=== PATIENT | female | born 1970 | race Caucasian/White ===

== ENCOUNTER 2016-11-14 22:57 | Emergency (ER) | payer OTHER, MEDICAID ==
[~2016-11-14] VITALS: Ht 172.7 cm; Wt 80.7 kg
[~2016-11-14 22:57] MED LIST: DILA100C PO; IBUP800T23 PO; IPRAAER IN; LIPI10TA PO; PHEN30TA32 PO; SUST600T4 PO; hiv med PO
[2016-11-14 23:06] VITALS: BP 119/90; PULSE 95; RESP 18; TEMP 97.6; O2SAT 95
[2016-11-15 00:10] VITALS: BP 119/90; PULSE 95; RESP 18; TEMP 97.6; O2SAT 97
[2016-11-15] MEDS ORDERED: oxyCODONE/ACETAMINOPHEN 5 MG/325 MG TAB PO ONE (00:15)
--- NOTE | 2016-11-15 00:19 | PD ---
HPI Chief Complaint: Fall Time Seen by Provider: 00:09 Travel History International Travel<30 days: No Contact w/Intl Traveler<30days: No History of Present Illness HPI Patient is a 46-year-old female who presents to emergency with complaints of right-sided knee pain. Patient reports that this afternoon, she was walking down some stairs at her home, reports that she fell down 2 stairs and landed on her right knee. Patient denies any trauma to the head or neck, reports no loss of consciousness. Patient reports that she noticed that she had an abrasion to her right knee and place antibiotic ointment and a Band-Aid over it. Reports that she was able to walk after her fall, reports that she has had increased pain over the past few hours to her right knee. Reports that she has has noticed increased bruising and swelling to her knee. Patient here for evaluation of possible fracture to her knee. Patient did take Motrin 4 hours ago and reports no relief of symptoms. PFSH Past Medical History Blood Disorders: Yes (HIV) Anxiety: Yes High Cholesterol: Yes Diminished Hearing: No Respiratory: Yes (Asthma) Immunizations Current: Yes Seizures: Yes Menopausal: No : 3 Past Surgical History Appendectomy: Yes Hysterectomy: Yes Oral Surgery: Yes Social History Alcohol Use: No Tobacco Use: Yes (1/2 PACK A DAY) Substance Use: No Allergies-Medications (Allergen,Severity, Reaction): Coded Allergies: No Known Allergies (Verified , 11/15/16) Reported Meds & Prescriptions Reported Meds & Active Scripts Active Reported Dilantin (Phenytoin Extended) 100 Mg Cap 200 Mg PO BID Phenobarbital 30 Mg Tab 30 Mg PO BID Review of Systems General / Constitutional: No: Fever Eyes: No: Visual changes HENT: No: Headaches Cardiovascular: No: Chest Pain or Discomfort Respiratory: No: Shortness of Breath Gastrointestinal: No: Abdominal Pain Genitourinary: No: Dysuria Musculoskeletal: Positive: Limited ROM (right knee), Pain (right knee pain) Skin: No Rash Neurologic: No: Weakness Psychiatric: No: Depression Endocrine: No: Polydipsia Hematologic/Lymphatic: No: Easy Bruising Physical Exam Narrative GENERAL: Well-nourished, well-developed patient. SKIN: Warm and dry. HEAD: Normocephalic. EYES: No scleral icterus. No injection or drainage. NECK: Supple, trachea midline. No JVD or lymphadenopathy. CARDIOVASCULAR: Regular rate and rhythm without murmurs, gallops, or rubs. RESPIRATORY: Breath sounds equal bilaterally. No accessory muscle use. GASTROINTESTINAL: Abdomen soft, non-tender, nondistended. MUSCULOSKELETAL: No cyanosis. Left lower extremity: Normal exam Right lower extremity: Patient with no pain with range of motion to right hip, patient with pain to passive and acitve range of motion to right knee, no pain with range of motion to right ankle. Patient does have bruising to her right knee as well as superficial abrasion. Patient with no obvious deformities, pulses intact, neurovascularly intact. BACK: Nontender without obvious deformity. No CVA tenderness. Data Data Last Documented VS Vital Signs Date Time Temp Pulse Resp B/P Pulse Ox O2 Delivery O2 Flow Rate FiO2 11/15/16 00:15 95 18 97 Room Air 11/15/16 00:10 97.6 119/90 Orders Knee, Complete (4vws) (11/15/16 ) Oxycodone-Acetamin 5-325 Mg (Percocet (11/15/16 00:15) MDM Medical Decision Making Medical Screen Exam Complete: Yes Emergency Medical Condition: Yes Interpretation(s) Vital Signs Date Time Temp Pulse Resp B/P Pulse Ox O2 Delivery O2 Flow Rate FiO2 11/14/16 23:06 97.6 95 18 119/90 95 Differential Diagnosis Knee sprain, knee fracture, patella fracture Narrative Course Patient is a 46-year-old female who presents to emergency room with complaints of knee pain. Patient reports that she fell down 2 stairs this afternoon, that she landed on her right knee. Patient with no trauma to the head or neck after fall. Patient is currently not on any anticoagulants. Patient reports that she noticed increased swelling and bruising to her right knee today, patient here for evaluation of possible fracture. X-ray of the knee ordered to evaluate for possible fracture X-ray of knee shows no signs of fracture, patient does have a joint effusion. This is reviewed with patient. Patient follow up with Ortho as outpatient and return to emergency room as needed. Encouraged rest, ice and elevation. Diagnosis Primary Impression: Knee sprain Qualified Code: S83.8X1A - Sprain of other ligament of right knee, initial encounter Additional Impression: Knee effusion, right Referrals: Rodger Marino MD Patient Instructions: General Instructions, Narcotic given in the ED Additional Instructions: Please provide patient with a copy of her x-ray discharge Please follow-up with orthopedic surgeon as needed Apply ice, rest and elevate her legs to help decrease swelling Do not drive or operate heavy machinery while taking pain medications. Med/Other Pt SpecificInfo: Prescription(s) given Scripts Hydrocodone-Acetaminophen (Lortab)5-325 Mg Tab1 Tab PO Q6H PRN (PAIN) #10 TAB Ref 0 Prov:Ana Cristina Field DO 11/15/16 Disposition: 01 DISCHARGE HOME Condition: Stable Ana Cristina Field DO Nov 15, 2016 00:19
[2016-11-15] MEDS ORDERED: DILA100C PO (00:59)
[2016-11-15] MEDS ORDERED: PHEN-523 PO (00:59)
--- NOTE | 2016-11-15 01:03 | RADHPO ---
EXAM DATE/TIME: 11/15/2016 00:23 [facility] COMPARISON: No previous studies available for comparison. INDICATIONS : Right knee pain after fall from standing height today MEDICAL HISTORY : None. SURGICAL HISTORY : None. ENCOUNTER: Initial ACUITY: 1 day PAIN SCORE: 8/10 LOCATION: Right anterior knee FINDINGS: 4 views of the right knee. Bone alignment within normal limits. No evidence of fracture. No evidence of joint narrowing. Moderate-sized joint effusion. Superior patellar enthesophyte noted. CONCLUSION: Moderate-sized joint effusion. No evidence of fracture. Juan Jose Canchola MD on November 15, 2016 at 1:00 Board Certified Radiologist. This report was verified electronically.
[2016-11-15] MEDS ORDERED: HYDR-3533 PO (01:07)
[2016-11-15 01:39] VITALS: RESP 18
[2016-11-15 01:50] VITALS: BP 105/71
== END 2016-11-15 01:52 | disposition home or self-care (01) ==
LOC: PHED 22:57
DX: S83.8X1A Sprain of other specified parts of right knee, initial encounter (principal); B20 Human immunodeficiency virus [HIV] disease; E78.00 Pure hypercholesterolemia, unspecified; F41.9 Anxiety disorder, unspecified; J45.909 Unspecified asthma, uncomplicated; F17.210 Nicotine dependence, cigarettes, uncomplicated; W10.8XXA Fall (on) (from) other stairs and steps, initial encounter; Y93.89 Activity, other specified; Y92.009 Unspecified place in unspecified non-institutional (private) residence as the place of occurrence of the external cause
CPT/HCPCS: 73564; 99283; E0113; L1830

== ENCOUNTER 2016-12-04 03:42 | Emergency (ER) | payer OTHER ==
[~2016-12-04] VITALS: Ht 170.2 cm; Wt 79.4 kg
[~2016-12-04 03:42] MED LIST changes: +HYDR-3533 PO; -IBUP800T23 PO; -IPRAAER IN; -LIPI10TA PO; +PHEN-523 PO; -PHEN30TA32 PO; -SUST600T4 PO; -hiv med PO
[2016-12-04 03:44] VITALS: BP 108/76; PULSE 82; RESP 18; TEMP 98; O2SAT 95
[2016-12-04 03:50] VITALS: BP 97/74; PULSE 80; RESP 16; TEMP 98.1; O2SAT 97
[2016-12-04] MEDS ORDERED: KETOROLAC TROMETHAMINE 30 MG/ML (IVP) VIAL IV PUSH ONE (04:30)
[2016-12-04] MEDS ORDERED: CYCLOBENZAPRINE HCL 10 MG TAB PO ONE (04:30)
[2016-12-04] MEDS ORDERED: SODIUM CHLOR 0.9% 1000 ML INJ 1,000 ML IV ONE (04:30)
[2016-12-04 05:21] LABS: BLOOD, URINE NEG (NEG); GLUCOSE,URINE NEG (NEG); KETONE, URINE TRACE mg/dL (NEG); NITRITE,URINE NEG (NEG); PH, URINE 5.5 (5.0-8.5)
[2016-12-04 05:21] LABS: AUTOMATED NEUTROPHIL # 5.7 TH/MM3 (1.8-7.7); BASOPHIL # 0.1 TH/MM3 (0-0.2); BASOPHIL % 0.8 % (0.0-2.0); EOSINOPHIL # 0.3 TH/MM3 (0-0.4); HEMATOCRIT 45.8 % (35.0-46.0); LYMPH % 31.2 % (9.0-44.0); LYMPHOCYTE # 3.1 TH/MM3 (1.0-4.8); MEAN CELL VOLUME 96.2 FL (80.0-100.0); MEAN CORPUSCULAR HEMOGLOBIN 31.5 PG (27.0-34.0); MEAN CORPUSCULAR HGB CONC 32.8 % (32.0-36.0); MONO % 6.1 % (0.0-8.0); NEUT % 58.9 % (16.0-70.0); PLATELET COUNT 287 TH/MM3 (150-450); RED BLOOD COUNT 4.77 MIL/MM3 (4.00-5.30); RED CELL DISTRIBUTION WIDTH 13.1 % (11.6-17.2); WHITE BLOOD COUNT 9.8 TH/MM3 (4.0-11.0)
[2016-12-04 05:47] LABS: HEMO FLAGS DIFF FINAL
[2016-12-04 05:48] LABS: CHLORIDE 109 MEQ/L (98-107); SODIUM (NA) 143 MEQ/L (136-145)
[2016-12-04 05:52] LABS: URINE COLOR YELLOW (YELLW/STRAW)
[2016-12-04 05:52] LABS: ANION GAP 9 MEQ/L (5-15); BICARBONATE 25.2 MEQ/L (21.0-32.0); BLOOD UREA NITROGEN 7 MG/DL (7-18)
[2016-12-04 05:53] LABS: MUCUS URINE MOD /lpf (OCC)
[2016-12-04 05:54] LABS: BACTERIA, URINE FEW /hpf
[2016-12-04 05:55] LABS: COMMENT (UR) CULT NOT INDICATED; CULTURE IF INDICATED CULT NOT INDICATED
[2016-12-04 05:55] LABS: ALT (GPT) 28 U/L (10-53); AST (GOT) 23 U/L (15-37); GLOMERULAR FILTRATION RATE 81 ML/MIN (>89)
--- NOTE | 2016-12-04 05:56 | PD ---
HPI Chief Complaint: Back/ Neck Pain or Injury Time Seen by Provider: 04:17 Travel History International Travel<30 days: No Contact w/Intl Traveler<30days: No History of Present Illness HPI Patient is a 46 year old female who comes in complaining of left lower back pain that started yesterday morning. She says the pain radiates down her left leg. She denies any numbness or tingling to her legs. She denies any incontinence, but says she has not been urinating much. She denies any fever or chills. She denies any injuries. She tried taking a Lortab without relief of her pain. PFSH Past Medical History Blood Disorders: Yes (HIV) Anxiety: Yes High Cholesterol: Yes Diminished Hearing: No Respiratory: Yes (COPD) Immunizations Current: Yes Seizures: Yes Tetanus Vaccination: Unknown Influenza Vaccination: No ?: Not Menopausal: No : 3 Past Surgical History Appendectomy: Yes Hysterectomy: Yes (1993) Oral Surgery: Yes Social History Alcohol Use: No Tobacco Use: Yes (1/2 PACK A DAY) Substance Use: No Allergies-Medications (Allergen,Severity, Reaction): Coded Allergies: No Known Allergies (Verified , 11/15/16) Reported Meds & Prescriptions Reported Meds & Active Scripts Active Flexeril (Cyclobenzaprine HCl) 10 Mg Tab 10 Mg PO TID Ibuprofen 600 Mg Tab 600 Mg PO Q6H PRN Lortab (Hydrocodone-Acetaminophen) 5-325 Mg Tab 1 Tab PO Q6H PRN Reported Dilantin (Phenytoin Extended) 100 Mg Cap 200 Mg PO BID Phenobarbital 30 Mg Tab 30 Mg PO BID Review of Systems Except as stated in HPI: all other systems reviewed are Neg General / Constitutional: No: Fever, Chills HENT: No: Headaches, Lightheadedness Cardiovascular: No: Chest Pain or Discomfort Respiratory: No: Shortness of Breath Gastrointestinal: No: Nausea, Vomiting Genitourinary: No: Dysuria, Flank Pain Musculoskeletal: Positive: Pain Skin: No Rash, No Change in Pigmentation Neurologic: No: Weakness, Sensory Disturbance Physical Exam Narrative GENERAL: Awake and alert, in no acute distress. SKIN: Focused skin assessment warm/dry. HEAD: Atraumatic. Normocephalic. EYES: Pupils equal and round. No scleral icterus. ENT: Mucous membranes pink and moist. NECK: Trachea midline. No JVD. CARDIOVASCULAR: Regular rate and rhythm. No murmur appreciated. RESPIRATORY: No accessory muscle use. Clear to auscultation. Breath sounds equal bilaterally. GASTROINTESTINAL: Abdomen soft, non-tender, nondistended. No CVA tenderness. MUSCULOSKELETAL: No obvious deformities. No clubbing. No cyanosis. No edema. Tender to left sacroiliac area. Pain with left straight leg raise. NEUROLOGICAL: Awake and alert. No obvious cranial nerve deficits. Motor grossly within normal limits. Normal speech. No saddle anesthesia. PSYCHIATRIC: Appropriate mood and affect; insight and judgment normal. Data Data Last Documented VS Vital Signs Date Time Temp Pulse Resp B/P Pulse Ox O2 Delivery O2 Flow Rate FiO2 12/04/16 03:50 98.1 80 16 97/74 97 Orders Complete Blood Count With Diff (12/04/16 04:27) Comprehensive Metabolic Panel (12/04/16 04:27) Urinalysis - C+S If Indicated (12/04/16 04:27) Spine, Lumbar Comp W/Obliq (12/04/16 ) Ketorolac Inj (Toradol Inj) (12/04/16 04:30) Cyclobenzaprine (Flexeril) (12/04/16 04:30) Sodium Chlor 0.9% 1000 Ml Inj (Ns 1000 M (12/04/16 04:30) Labs Laboratory Tests Test 12/04/16 12/04/16 04:40 04:45 Urine Color YELLOW Urine Turbidity SLIGHT Urine pH 5.5 Urine Specific [place] 1.019 Urine Protein NEG mg/dL Urine Glucose (UA) NEG mg/dL Urine Ketones TRACE mg/dL Urine Occult Blood NEG Urine Nitrite NEG Urine Bilirubin NEG Urine Leukocyte Esterase NEG Urine WBC 3-5 /hpf Urine Squamous Epithelial 6-8 /hpf Cells Urine Bacteria FEW /hpf Urine Mucus MOD /lpf Microscopic Urinalysis Comment CULT NOT INDICATED White Blood Count 9.8 TH/MM3 Red Blood Count 4.77 MIL/MM3 Hemoglobin 15.0 GM/DL Hematocrit 45.8 % Mean Corpuscular Volume 96.2 FL Mean Corpuscular Hemoglobin 31.5 PG Mean Corpuscular Hemoglobin 32.8 % Concent Red Cell Distribution Width 13.1 % Platelet Count 287 TH/MM3 Mean Platelet Volume 7.6 FL Neutrophils (%) (Auto) 58.9 % Lymphocytes (%) (Auto) 31.2 % Monocytes (%) (Auto) 6.1 % Eosinophils (%) (Auto) 3.0 % Basophils (%) (Auto) 0.8 % Neutrophils # (Auto) 5.7 TH/MM3 Lymphocytes # (Auto) 3.1 TH/MM3 Monocytes # (Auto) 0.6 TH/MM3 Eosinophils # (Auto) 0.3 TH/MM3 Basophils # (Auto) 0.1 TH/MM3 CBC Comment DIFF FINAL Differential Comment Sodium Level 143 MEQ/L Potassium Level 4.5 MEQ/L Chloride Level 109 MEQ/L Carbon Dioxide Level 25.2 MEQ/L Anion Gap 9 MEQ/L Blood Urea Nitrogen 7 MG/DL Creatinine 0.76 MG/DL Estimat Glomerular Filtration 81 ML/MIN Rate Random Glucose 91 MG/DL Calcium Level 8.4 MG/DL Total Bilirubin 0.2 MG/DL Aspartate Amino Transf 23 U/L (AST/SGOT) Alanine Aminotransferase 28 U/L (ALT/SGPT) Alkaline Phosphatase 136 U/L Total Protein 7.5 GM/DL Albumin 3.5 GM/DL [facility] Medical Decision Making Medical Screen Exam Complete: Yes Emergency Medical Condition: Yes Medical Record Reviewed: Yes Differential Diagnosis UTI versus muscle strain versus sciatica Narrative Course Patient is a 38-year-old female comes in complaining of left lower back pain. Exam shows tenderness to left sacroiliac area. IV established, labs sent. Patient given IV fluids, Toradol, Flexeril. Labs show no acute abnormalities. XR shows some osteopenia and mild scoliosis, no acute abnormalities. Patient reports feeling better after medications. Will be discharged with prescriptions for Ibuprofen and Flexeril. Advised to follow up with her doctor. Advised to return to the ED as needed for any worsening symptoms. Diagnosis Primary Impression: Low back pain Qualified Code: M54.42 - Acute left-sided low back pain with left-sided sciatica Patient Instructions: Acute Low Back Pain (ED), General Instructions Additional Instructions: Take Ibuprofen and Flexeril as needed for pain. Follow up with your doctor. Return to the ED as needed for any worsening symptoms. Scripts Cyclobenzaprine (Flexeril)10 Mg Tab10 Mg PO TID #15 TAB Ref 0 Prov:Breann Dc MD 12/04/16 Ibuprofen 600 Mg Akg707 Mg PO Q6H PRN (Pain/Inflammation) #20 TAB Ref 0 Prov:Breann Dc MD 12/04/16 Disposition: 01 DISCHARGE HOME Condition: Stable Breann Dc MD Dec 04, 2016 05:56
[2016-12-04 05:57] LABS: TOTAL BILIRUBIN ADULT 0.2 MG/DL (0.2-1.0)
[2016-12-04 05:58] LABS: ALKALINE PHOSPHATASE 136 U/L (45-117)
[2016-12-04 06:13] LABS: POTASSIUM 4.5 MEQ/L (3.5-5.1)
[2016-12-04] MEDS ORDERED: CYCL1TAB29 PO (06:18)
[2016-12-04] MEDS ORDERED: IBUP-232 PO (06:18)
--- NOTE | 2016-12-04 06:19 | RADHPO ---
EXAM DATE/TIME: 12/04/2016 04:50 [facility] COMPARISON: No previous studies available for comparison. INDICATIONS : Low back pain for several days. MEDICAL HISTORY : None. SURGICAL HISTORY : None. ENCOUNTER: Initial ACUITY: 2 days PAIN SCORE: 7/10 LOCATION: Bilateral Paraspinal FINDINGS: There are five non-rib bearing vertebral bodies. A very subtle scoliotic curvature. The disc spaces are maintained. The posterior elements are intact without evidence of spondylolysis. The pedicles a re intact. Bony mineralization is reduced. No fracture is identified. CONCLUSION: 1. No acute abnormality. 2. Osteopenia. 3. Mild scoliosis. Brian Massey Jr., MD on December 04, 2016 at 6:17 Board Certified Radiologist. This report was verified electronically.
[2016-12-04 07:16] VITALS: BP 129/81; TEMP 98.6
== END 2016-12-04 07:17 | disposition home or self-care (01) ==
LOC: PHED 03:42
DX: M54.42 Lumbago with sciatica, left side (principal); F41.9 Anxiety disorder, unspecified; E78.00 Pure hypercholesterolemia, unspecified; J44.9 Chronic obstructive pulmonary disease, unspecified; F17.200 Nicotine dependence, unspecified, uncomplicated; Z21 Asymptomatic human immunodeficiency virus [HIV] infection status
CPT/HCPCS: 72110; 80053; 81001; 85025; 96361; 96374; 99283; J1885; J7030

== ENCOUNTER 2017-11-10 17:48 | Emergency (ER) | payer OTHER ==
[~2017-11-10] VITALS: Ht 170.2 cm; Wt 80.0 kg
[~2017-11-10 17:48] MED LIST changes: +CYCL10TA PO; +IBUP-232 PO
[2017-11-10 18:04] VITALS: BP 118/67; PULSE 86; RESP 18; TEMP 98; O2SAT 97
[2017-11-10] MEDS ORDERED: DICL75TA PO (20:08)
[2017-11-10] MEDS ORDERED: HYDR-3516 PO (20:08)
== END 2017-11-10 18:56 | disposition left against medical advice (07) ==
LOC: NED 17:48
DX: M25.571 Pain in right ankle and joints of right foot (principal)
CPT/HCPCS: 99281

== ENCOUNTER 2017-11-10 19:17 | Emergency (ER) | payer OTHER ==
[2017-11-10 19:24] VITALS: BP 143/74; PULSE 86; RESP 20; TEMP 98; O2SAT 98
--- NOTE | 2017-11-10 20:01 | RADRPT ---
EXAM DATE/TIME: 11/10/2017 19:42 [facility] COMPARISON: No previous studies available for comparison. INDICATIONS : Right lateral ankle pain after twisting ankle today. MEDICAL HISTORY : None. SURGICAL HISTORY : None. ENCOUNTER: Initial ACUITY: 1 day PAIN SCORE: 6/10 LOCATION: Right ankle FINDINGS: There is moderate soft tissue swelling about the lateral aspect of the ankle. There is a horizontal nondisplaced fracture through the distal metaphysis of the fibula. The distal tibia is grossly intac t and the ankle mortise is symmetric. No radiopaque foreign bodies. CONCLUSION: Nondisplaced horizontal fracture of the distal metaphysis of the fibula with associated soft tissue s welling. Brian Reyes MD on November 10, 2017 at 19:58 Board Certified Radiologist. This report was verified electronically.
--- NOTE | 2017-11-10 20:04 | PD ---
HPI Chief Complaint: Fall Time Seen by Provider: 19:33 Travel History International Travel<30 days: No Contact w/Intl Traveler<30days: No Traveled to known affect area: No History of Present Illness HPI 47-year-old female that presents to the ED for evaluation of injury to her right ankle. Per patient she accidentally tripped and fell and injured her right ankle. Per patient is happened around 5:00 this afternoon. She's been having pain on the lateral aspect of the ankle. She has swelling in this area. Denies any prior injuries. No numbness, tingling, weakness. She has difficulty moving the foot but able to do it. She states that the pain currently is 7 out of 10. Gets worse with weightbearing. No allergies to medication. No other injuries reported. PFSH Past Medical History Blood Disorders: Yes (HIV) Anxiety: Yes High Cholesterol: Yes Diminished Hearing: No Respiratory: Yes (COPD) Immunizations Current: Yes Seizures: Yes ?: Not LMP: 1993 Menopausal: No : 3 Past Surgical History Appendectomy: Yes Hysterectomy: Yes Oral Surgery: Yes Social History Alcohol Use: No Tobacco Use: Yes (1/2 PACK A DAY) Substance Use: No Allergies-Medications (Allergen,Severity, Reaction): Coded Allergies: No Known Allergies (Verified Adverse Reaction, Unknown, 11/10/17) Reported Meds & Prescriptions Reported Meds & Active Scripts Active Hydrocodone-Acetaminophen 5-325 mg Tab 1 Tab PO Q6H PRN Diclofenac Sodium DR (Diclofenac Sodium) 75 Mg Tabdr 75 Mg PO BID PRN Reported Dilantin (Phenytoin Extended) 100 Mg Cap 200 Mg PO BID Phenobarbital 30 Mg Tab 30 Mg PO BID Review of Systems Except as stated in HPI: all other systems reviewed are Neg Physical Exam Narrative GENERAL: SKIN: Warm and dry. HEAD: Atraumatic. Normocephalic. EYES: Pupils equal and round. No scleral icterus. No injection or drainage. ENT: No nasal bleeding or discharge. Mucous membranes pink and moist. Tongue is midline. No uvula deviation. NECK: Trachea midline. No JVD. CARDIOVASCULAR: Regular rate and rhythm. RESPIRATORY: No accessory muscle use. Clear to auscultation. Breath sounds equal bilaterally. GASTROINTESTINAL: Abdomen soft, non-tender, nondistended. Hepatic and splenic margins not palpable. MUSCULOSKELETAL: Extremities without clubbing, cyanosis, or edema. No obvious deformities. Full range of motion of the upper and lower extremities bilaterally. Patient does have pain and swelling reproducible on the right lateral malleolus. Very tender to touch in this area. No obvious bony deformity or swelling noted on the foot itself. 2+ pulses bilaterally. Neurovascularly intact. No lumbar, thoracic, cervical spine tenderness to palpation. NEUROLOGICAL: Awake and alert. No obvious cranial nerve deficits. Motor grossly within normal limits. Five out of 5 muscle strength in the arms and legs. Normal speech. PSYCHIATRIC: Appropriate mood and affect; insight and judgment normal. Data Data Last Documented VS Vital Signs Date Time Temp Pulse Resp B/P (MAP) Pulse Ox O2 Delivery O2 Flow Rate FiO2 11/10/17 19:24 98.0 86 20 143/74 (97) 98 Orders Orders Ankle, Complete ([id number]) (11/10/17 ) Splint Or Brace Apply/Monitor (11/10/17 20:04) Acetamin-Hydrocod 325-5 Mg ([place] 5-325 (11/10/17 20:15) Ed Discharge Order (11/10/17 20:04) Mandatory Outpatient Referral (11/10/17 20:06) MDM Medical Decision Making Medical Screen Exam Complete: Yes Emergency Medical Condition: Yes Medical Record Reviewed: Yes Interpretation(s) X-ray of the right ankle show fracture of the distal fibula Differential Diagnosis Fracture versus sprain versus bruise Narrative Course 47 yo female here for injury to the right ankle. Patient was properly examined and was found to have signs and symptoms concerning for bony injuries. X-rays were done. X-rays were positive for fracture. Patient will be put in splint. Given crutches. Patient will be given a prescription for Lortab and diclofenac sodium. Told to follow up with orthopedic doctor. See ED worsening symptoms. Ice or warm compresses. Diagnosis Primary Impression: Ankle fracture, right Qualified Codes: S82.891A - Other fracture of right lower leg, initial encounter for closed fracture Referrals: Edmund Solis MD Patient Instructions: General Instructions, Narcotic given in the ED Additional Instructions: Take medications as prescribed. Follow-up with ortho. A mandatory referral ordered, but if you can also call your doctor to refer you to an orthopaedic doctor. See ED for any worsening symptoms. Do not drink or drive while taking pain medication. Apply ice or heat as needed for pain. Med/Other Pt SpecificInfo: Prescription(s) given Scripts Hydrocodone-Acetaminophen (Hydrocodone-Acetaminophen) 5-325 mg Tab 1 TAB PO Q6H Y for PAIN, #14 TAB 0 Refills Prov: Margaux Molina MD 11/10/[address] (Diclofenac Sodium DR) 75 Mg Tabdr 75 MG PO BID Y for PAIN SCALE 1 TO 10, #20 TAB 0 Refills Prov: Margaux Molina MD 11/10/17 Disposition: 01 DISCHARGE HOME Condition: Harsh Sanchez Nov 10, 2017 20:04
[2017-11-10] MEDS ORDERED: HYDR-3516 PO (20:08)
[2017-11-10] MEDS ORDERED: DICL75TA PO (20:08)
[2017-11-10] MEDS ORDERED: ACETAMINOPHEN/HYDROcodone 325 MG/5 MG TAB PO ONE (20:15)
== END 2017-11-10 20:33 | disposition home or self-care (01) ==
LOC: PHEFT 19:17
DX: S82.891A Other fracture of right lower leg, initial encounter for closed fracture (principal); W01.0XXA Fall on same level from slipping, tripping and stumbling without subsequent striking against object, initial encounter; B20 Human immunodeficiency virus [HIV] disease; J44.9 Chronic obstructive pulmonary disease, unspecified; Z72.0 Tobacco use
CPT/HCPCS: 73610; 99283

== ENCOUNTER 2017-11-11 02:52 | Emergency (ER) | payer OTHER ==
[~2017-11-11] VITALS: Ht 170.2 cm; Wt 84.2 kg
[~2017-11-11 02:52] MED LIST changes: -CYCL10TA PO; +DICL75TA PO; +HYDR-3516 PO; -HYDR-3533 PO; -IBUP-232 PO
[2017-11-11 03:09] VITALS: BP 120/77; PULSE 88; RESP 20; O2SAT 96
--- NOTE | 2017-11-11 03:58 | PD ---
HPI Chief Complaint: Pain: Acute or Chronic Time Seen by Provider: 03:52 Travel History International Travel<30 days: No Contact w/Intl Traveler<30days: No Traveled to known affect area: No History of Present Illness HPI 47-year-old female patient with history of HIV, seizures, was seen earlier today for distal fibular fracture, was placed in a Ibarra splint, presents to the ER today because she she states that her foot feels cold this evening when she went to lay down. She denies any paresthesias or any other issues. Modifying Factors: None Associated Signs & Symptoms: Feels like her foot is getting cold Risk Factors: Had a cast placed today PFSH Past Medical History Blood Disorders: Yes (HIV) Anxiety: Yes High Cholesterol: Yes Diminished Hearing: No Respiratory: Yes (COPD) Immunizations Current: Yes Seizures: Yes ?: Not Menopausal: No : 3 Past Surgical History Appendectomy: Yes Hysterectomy: Yes Oral Surgery: Yes Social History Alcohol Use: No Tobacco Use: Yes (1/2 PACK A DAY) Substance Use: No Allergies-Medications (Allergen,Severity, Reaction): Coded Allergies: No Known Allergies (Verified Adverse Reaction, Unknown, 11/11/17) Reported Meds & Prescriptions Reported Meds & Active Scripts Active Hydrocodone-Acetaminophen 5-325 mg Tab 1 Tab PO Q6H PRN Diclofenac Sodium DR (Diclofenac Sodium) 75 Mg Tabdr 75 Mg PO BID PRN Reported Dilantin (Phenytoin Extended) 100 Mg Cap 200 Mg PO BID Phenobarbital 30 Mg Tab 30 Mg PO BID Review of Systems Except as stated in HPI: all other systems reviewed are Neg Physical Exam Narrative GENERAL: Well-nourished, well-developed middle-age female patient in no acute distress. SKIN: Focused skin assessment warm/dry. HEAD: Normocephalic. EYES: No scleral icterus. No injection or drainage. NECK: Supple, trachea midline. No JVD or lymphadenopathy. CARDIOVASCULAR: Regular rate and rhythm without murmurs, gallops, or rubs. RESPIRATORY: Breath sounds equal bilaterally. No accessory muscle use. GASTROINTESTINAL: Abdomen soft, non-tender, nondistended. MUSCULOSKELETAL: No cyanosis, or edema. EXTREMITIES: No clubbing, cyanosis, or edema. No joint tenderness, effusion, or edema noted. The right ankle is in a Ibarra splint, no signs of toe cyanosis, dorsal pedis pulses are intact. No significant skin breakdown. BACK: Nontender without obvious deformity. No CVA tenderness. Data Data Last Documented VS Vital Signs Date Time Temp Pulse Resp B/P (MAP) Pulse Ox O2 Delivery O2 Flow Rate FiO2 11/11/17 03:09 88 20 120/77 (91) 96 [facility] Medical Decision Making Medical Screen Exam Complete: Yes Emergency Medical Condition: Yes Medical Record Reviewed: Yes Differential Diagnosis Splint circulatory issues versus tight splinting Narrative Course The splint was loosened and it appears that the area that she feels cold is right at the midfoot region on the foot dorsum and after loosening the bandages , she states it is feeling better. Pulses are intact. She also has a little moisture in that area which possibly could be causing that sensation as well. At this point, my plan would be to loosen the splint for her and I will have her follow-up with orthopedics. Return for any worsening in symptoms as necessary. The plan has been discussed with the patient and she states understanding. Diagnosis Primary Impression: Cast discomfort Disposition: 01 DISCHARGE HOME Condition: Stable Margaux Molina MD Nov 11, 2017 03:58
[2017-11-11] MEDS ORDERED: IBUPROFEN 600 MG TAB PO ONE (04:00)
== END 2017-11-11 04:41 | disposition home or self-care (01) ==
LOC: PHED 02:52
DX: S82.831A Other fracture of upper and lower end of right fibula, initial encounter for closed fracture (principal)
CPT/HCPCS: 99281